=== PATIENT | female | born 1985 | race American Indian/Alaskan Native ===

== ENCOUNTER 2018-12-13 11:45 | Emergency (ER) | payer MEDICAID ==
[2018-12-13 11:52] VITALS: BP 129/93
--- NOTE | 2018-12-13 11:58 | Emergency Department Report ---
ED ENT HPI - General Chief complaint: Sore Throat Stated complaint: STREP THROAT Source: patient Mode of arrival: Ambulatory Limitations: No Limitations - History of Present Illness Initial comments: 33 y/o female 2 day history of sore throat. No fevers. Has taken theraflu and flexeril. Pain with swallowing. Onset/Timin -: days(s) Location: throat Severity scale (0 -10): 6 Quality: sharp Consistency: intermittent Improves with: none Worsens with: swallowing Associated Symptoms: sore throat - Related Data Previous Rx's Medication Instructions Recorded Last Taken Type oxyCODONE /ACETAMINOPHEN [Percocet 1 tab PO Q6HR PRN #60 tablet 06/29/15 Unknown Rx 5/325] Amoxicillin [Amoxicillin TAB] 875 mg PO BID #14 tablet 12/13/18 Unknown Rx Ibuprofen [Motrin 800 MG tab] 800 mg PO Q8HR PRN #30 tablet 12/13/18 Unknown Rx Allergies Allergy/AdvReac Type Severity Reaction Status Date / Time Sulfa (Sulfonamide Allergy Itching Verified 12/13/18 11:50 Antibiotics) ED Dental HPI - General Chief complaint: Sore Throat Stated complaint: STREP THROAT Source: patient Mode of arrival: Ambulatory Limitations: No Limitations - Related Data Previous Rx's Medication Instructions Recorded Last Taken Type oxyCODONE /ACETAMINOPHEN [Percocet 1 tab PO Q6HR PRN #60 tablet 06/29/15 Unknown Rx 5/325] Amoxicillin [Amoxicillin TAB] 875 mg PO BID #14 tablet 12/13/18 Unknown Rx Ibuprofen [Motrin 800 MG tab] 800 mg PO Q8HR PRN #30 tablet 12/13/18 Unknown Rx Allergies Allergy/AdvReac Type Severity Reaction Status Date / Time Sulfa (Sulfonamide Allergy Itching Verified 12/13/18 11:50 Antibiotics) ED Review of Systems ROS: Stated complaint: STREP THROAT Other details as noted in HPI Comment: All other systems reviewed and negative ED Past Medical Hx - Past Medical History Previous Medical History?: No Hx Hypertension: Yes (During only) Hx Congestive Heart Failure: No Hx Diabetes: No Hx Deep Vein Thrombosis: (FAMILY HISTORY) Hx Renal Disease: No Hx Seizures: No Hx Asthma: No Hx COPD: No Hx HIV: No - Surgical History Hx Breast Surgery: Yes (BREAST BIOPSY NO CANCER) Additional Surgical History: left arm - Social History Smoking Status: Never Smoker - Medications Home Medications: Home Medications Medication Instructions Recorded Confirmed Last Taken Type oxyCODONE /ACETAMINOPHEN [Percocet 1 tab PO Q6HR PRN #60 tablet 06/29/15 Unknown Rx 5/325] Amoxicillin [Amoxicillin TAB] 875 mg PO BID #14 tablet 12/13/18 Unknown Rx Ibuprofen [Motrin 800 MG tab] 800 mg PO Q8HR PRN #30 tablet 12/13/18 Unknown Rx ED Physical Exam - General Limitations: No Limitations General appearance: alert, in no apparent distress - Head Head exam: Present: atraumatic, normocephalic - Eye Eye exam: Present: normal appearance - ENT ENT exam: Present: mucous membranes moist - Expanded ENT Exam Expanded Throat exam: Positive: tonsillar erythema. Negative: tonsillomegaly, tonsillar exudate - Neck Neck exam: Present: normal inspection, full ROM - Neurological Exam Neurological exam: Present: alert, oriented X3 - Psychiatric Psychiatric exam: Present: normal affect, normal mood - Skin Skin exam: Present: warm, dry, intact, normal color. Absent: rash ED Course Vital Signs 12/13/18 11:50 Temperature 98.4 F Pulse Rate 101 H Respiratory 18 Rate Blood Pressure 129/93 O2 Sat by Pulse 98 Oximetry ED Medical Decision Making - Medical Decision Making 33 y/o female comes in for 2 day history of sore throat. No fever. Patient will be treated with ibuprofen and amoxicillin Critical care attestation.: If time is entered above; I have spent that time in minutes in the direct care of this critically ill patient, excluding procedure time. ED Disposition Clinical Impression: Pharyngitis Qualifiers: Pharyngitis/tonsillitis etiology: unspecified etiology Qualified Code(s): J02.9 - Acute pharyngitis, unspecified Disposition: DC-01 TO HOME OR SELFCARE Is pt being admited?: No Does the pt Need Aspirin: No Condition: Stable Instructions: Pharyngitis (ED) Additional Instructions: Complete antibiotics and take pain meds as needed. Prescriptions: Amoxicillin [Amoxicillin TAB] 875 mg PO BID #14 tablet Ibuprofen [Motrin 800 MG tab] 800 mg PO Q8HR PRN #30 tablet PRN Reason: Pain , Severe (7-10) Referrals: [facility] [place] [Outside] - 3-5 Days
== END 2018-12-13 12:13 | disposition home or self-care (01) ==
LOC: ED 11:45
DX: J02.9 Acute pharyngitis, unspecified (principal); I10 Essential (primary) hypertension; Z98.890 Other specified postprocedural states; Z79.899 Other long term (current) drug therapy; Z88.2 Allergy status to sulfonamides
CPT/HCPCS: 99281

== ENCOUNTER 2021-01-28 15:01 | Emergency (ER) | payer MEDICAID ==
[2021-01-28 16:04] VITALS: BP 114/78
--- NOTE | 2021-01-28 16:42 | Event Note ---
ED Screening Note ED Screening Note: Patient presents for left arm pain and swelling over the last few days she states that she has been leaving ice on it for long periods States that she has noticed bruising She states that in 2017 she had a surgical fixation of her fracture Allergy to sulfa This initial assessment/diagnostic orders/clinical plan/treatment(s) is/are subject to change based on patients health status, clinical progression and re- assessment by fellow clinical providers in the ED. Further treatment and workup at subsequent clinical providers discretion. Patient/guardian urged not to elope from the ED as their condition may be serious if not clinically assessed and managed. Initial orders include: Labs, x-ray
--- NOTE | 2021-01-28 17:21 | XRay Report ---
LEFT HUMERUS 2 VIEW(S) INDICATION / CLINICAL INFORMATION: left upper arm pain COMPARISON: 06/29/15 FINDINGS: BONES / JOINT(S): No acute fracture or subluxation. Healed proximal left humerus fracture with ibrahima l intramedullary chao in place. SOFT TISSUES: No significant abnormality. ADDITIONAL FINDINGS: None. IMPRESSION: 1. No acute findings. Signer Name: Demi Henderson MD Signed: 01/28/2021 5:17 PM Workstation Name: [id number]
--- NOTE | 2021-01-28 17:22 | XRay Report ---
LEFT FOREARM 2 VIEW(S) INDICATION / CLINICAL INFORMATION: left forearm pain COMPARISON: None available. FINDINGS: BONES / JOINT(S): No acute fracture or subluxation. No significant arthritis. SOFT TISSUES: Mild soft tissue swelling along the ulnar aspect of the elbow and proximal forearm. ADDITIONAL FINDINGS: None. Signer Name: Demi Henderson MD Signed: 01/28/2021 5:18 PM Workstation Name: [id number]
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
== END 2021-01-28 17:47 | disposition home or self-care (01) ==
LOC: ED 15:01
DX: S40.022A Contusion of left upper arm, initial encounter (principal); F17.290 Nicotine dependence, other tobacco product, uncomplicated; Z98.890 Other specified postprocedural states; Y93.89 Activity, other specified; Y92.89 Other specified places as the place of occurrence of the external cause; Y99.8 Other external cause status
CPT/HCPCS: 99283